=== PATIENT | female | born 1960 | race American Indian/Alaskan Native ===

== ENCOUNTER 2016-03-27 08:08 | Day surgery (SDC) | payer BC ==
[2016-03-27] MEDS ORDERED: WATER FOR IRRIG STERILE IR ONE (08:28)
--- NOTE | 2016-03-27 08:49 | Anesthesia Day of Surgery ---
Anesthesia Day of Surgery - Day of Surgery Patient Examined: Yes Patient H&P Reviewed: Yes Patient is NPO: Yes
--- NOTE | 2016-03-27 08:54 | Anesthesia Consultation ---
Anesthesia Consult and Med Hx Date of service: 03/27/16 - Airway Anesthetic Teeth Evaluation: Partials (upper) ROM Head & Neck: Adequate Mental/Hyoid Distance: Adequate Mallampati Class: Class II Intubation Access Assessment: Probably Good - Pulmonary Exam CTA: Yes - Cardiac Exam Cardiac Exam: RRR - Pre-Operative Health Status ASA Pre-Surgery Classification: ASA3 Proposed Anesthetic Plan: MAC - Pulmonary Hx Smoking: No Hx Sleep Apnea: Yes - Cardiovascular System Hx Hypertension: Yes - Central Nervous System Hx Seizures: No CVA: No - Endocrine Hx Renal Disease: No Hx Liver Disease: No Hx Non-Insulin Dependent Diabetes: No - Hematic Hx Sickle Cell Disease: No - Other Systems Hx Obesity: Yes - Additional Comments Anesthesia Medical History Comments: PONV
[2016-03-27] MEDS ORDERED: DIPRIVAN 10 MG/ML IV ONE ×3 (08:56)
[2016-03-27] MEDS ORDERED: NACL 0.9% 1000 ML 1,000 ML IV SCH (09:00)
--- NOTE | 2016-03-27 09:35 | Short Stay Summary ---
Short Stay Documentation Date of service: 03/27/16 Narrative H&P: 55 year old presents for colonoscopy for colon screening. No prior colonoscopy. - History Principal diagnosis: average risk colon screening H&P: obtained from office - Allergies and Medications Current Medications: Allergies Penicillins Allergy (Verified 12/28/12 10:27) Rash Home Medications Medication Instructions Recorded Confirmed Last Taken Type Hydrocodone Bit/Acetaminophen 1 each PO Q4-6H PRN #12 tablet 12/28/12 03/27/16 Unknown Rx [Lortab 5-500 Tablet] Ibuprofen [Motrin 800 MG tab] 800 mg PO TID #30 tablet 12/28/12 03/27/16 Unknown Rx Spironolactone [Aldactone] 50 mg PO QDAY 12/28/12 03/27/16 03/27/16 History amLODIPine [Norvasc] 10 mg PO DAILY 12/28/12 03/27/16 12/27/12 19:00 History Chromium 200 mg PO DAILY 03/27/16 03/27/16 03/20/16 History Losartan 50 mg PO DAILY 03/27/16 03/27/16 03/27/16 History Vitamin D 1 tab PO DAILY 03/27/16 03/27/16 03/20/16 History Active Medications Sodium Chloride (Nacl 0.9% 1000 Ml) 1,000 mls @ 50 mls/hr IV DIRECT LION Last Admin: 03/27/16 08:56 Dose: 50 mls/hr - Hospital course Hospital course: Uneventful colonoscopy. - Disposition Condition at discharge: Good Disposition: DISCHARGED TO HOME OR SELFCARE - Discharge Diagnoses (1) Colon polyps Status: Acute (2) Internal hemorrhoids Status: Acute Short Stay Discharge Plan Activity: other (no driving today) Diet: other (may resume usual diet) Additional Instructions: 1. No NSAIDs for 14 days (stop taking your iboprofen for the next 14 days). 2. Patient to call for path results in 10 days if she has not heard from us by then. 3. First-degree relatives (brothers, sisters, sons, daughters) should begin their colon screening at age 40 rather than age 50.
--- NOTE | 2016-03-27 10:23 | Operative Report ---
Operative Report Operative Report: Date of procedure: 03/27/2016 Preprocedure diagnosis: Average risk colon screening Post procedure diagnosis: Multiple polyps and internal hemorrhoids Procedure name(s): Colonoscopy with snare polypectomy 2 and forceps polypectomy 1 Surgeon: Porfirio Villalobos MD Anesthesia: Monitored anesthesia care EBL: None Procedure: The indications, techniques, potential complications and alternatives , had been discussed in full detail prior to the date of the exam, and once again on the day of the exam. Questions were encouraged and answered, and consent was thereby obtained. The patient was placed in the left lateral decubitus position, and was medicated by anesthesia services. See the anesthesia records for details. The anal sphincter was digitally dilated. The digital exam was unremarkable. The tip of a 8hands adult video colonoscope was inserted through the anal sphincter and into the rectal vault. It was then advanced proximally under continuous visualization of the lumen to the cecum without difficulty. Along the way, a 1 cm pedunculated polyp was excised from the sigmoid with snare and cautery (container #1) and a 1.5 cm pedunculated polyp was excised from the descending colon with a snare and cautery (container #2). There was no bleeding from either polypectomy site. Thereafter the instrument was advanced fully to the cecum. The prep was good and landmarks were easily identified. No pathology was seen in the cecum. The appendiceal orifice appeared normal. From the cecum, the instrument was slowly withdrawn with careful circumferential examination of the colonic mucosa. A 2-3 mm sessile polyp of the superior aspect of the ileocecal valve could not be excised using a snare, and was therefore excised using a hot forceps (container #3). No bleeding was precipitated. Withdrawal of the instrument was continued. The remainder the ascending colon appeared normal, as did the hepatic flexure, transverse colon and splenic flexure. The descending and sigmoid colon appeared normal except for the previous polypectomy sites. The rectum appeared normal from the forward view. Retroflexion in the rectum revealed internal hemorrhoids without stigmata of bleeding. No other pathology was found. The instrument was fully withdrawn. The procedure was very well tolerated. Postprocedure she was monitored in the recovery area of the GI lab to ensure stability prior to her release. See the outpatient record for details regarding instructions to patient, medications and plans for follow-up. Final diagnosis: 1. Pedunculated polyp, 1.5 cm, descending colon 2. Pedunculated polyp, 1.0 cm, sigmoid colon 3. Sessile polyp, 2-3 mm, superior surface of ileocecal valve 4. Internal hemorrhoids Porfirio Villalobos M.D. Dictated 03/27/2016 at 10:20 AM
[2016-03-27 10:32] VITALS: BP 128/55
== END 2016-03-27 08:09 | disposition home or self-care (01) ==
LOC: GIO 08:08
PROVIDERS: ATTEND Internal Medicine Gastroenterology
DX: Z12.11 Encounter for screening for malignant neoplasm of colon (principal); D12.5 Benign neoplasm of sigmoid colon; D12.4 Benign neoplasm of descending colon; K63.5 Polyp of colon; K64.8 Other hemorrhoids; I10 Essential (primary) hypertension; Z68.41 Body mass index [BMI] 40.0-44.9, adult; E66.9 Obesity, unspecified; Z72.89 Other problems related to lifestyle; Z98.890 Other specified postprocedural states; Z83.79 Family history of other diseases of the digestive system; Z80.0 Family history of malignant neoplasm of digestive organs
CPT/HCPCS: 45384; 45385; 88305; J2704; J7030

== ENCOUNTER 2016-10-27 12:59 | Emergency (ER) | payer BC ==
[2016-10-27 13:37] LABS: Basophils % (Auto) 0.6 % (0.0-1.8); Eosinophils % (Auto) 0.2 % (0.0-4.3); Hematocrit 41.9 % (30.3-42.9); Hemoglobin 14.3 gm/dl (10.1-14.3); Mean Corpuscular HGB Conc 34 % (30-34); Mean Corpuscular Hemoglobin 30 pg (28-32); Mean Corpuscular Volume 87 fl (79-97); Platelet Count 230 K/mm3 (140-440); Red Blood Count 4.81 M/mm3 (3.65-5.03); Red Cell Distribution Width 14.4 % (13.2-15.2); White Blood Count 14.7 K/mm3 (4.5-11.0)
--- NOTE | 2016-10-27 13:42 | Emergency Department Report ---
ED Chest Pain HPI - General Chief Complaint: Chest Pain Stated Complaint: CHEST PAIN Time Seen by Provider: 10/27/16 13:28 Source: patient Mode of arrival: Ambulatory Limitations: No Limitations - History of Present Illness Initial Comments: This is a 56 year-old female presents to the emergency department from home with complaint of a 1-2 day history of left-sided chest pain with some radiation up towards the left shoulder. The pain is reproducible when she touches her chest and with certain movements. She says that it was really painful when she was driving and had to use her left arm to turn the steering wheel. She denies any shortness of breath, nausea, vomiting, fever, back pain or diaphoresis. She has a past medical history of hypertension. No recent travel or sick contacts at home. She is not taking anything for symptoms prior to presentation. She denies any tobacco or illicit drug use or abuse. - Related Data Home Medications Medication Instructions Recorded Confirmed Last Taken Spironolactone [Aldactone] 50 mg PO QDAY 12/28/12 03/27/16 03/27/16 amLODIPine [Norvasc] 10 mg PO DAILY 12/28/12 03/27/16 12/27/12 19:00 Chromium 200 mg PO DAILY 03/27/16 03/27/16 03/20/16 Losartan 50 mg PO DAILY 03/27/16 03/27/16 03/27/16 Vitamin D 1 tab PO DAILY 03/27/16 03/27/16 03/20/16 Previous Rx's Medication Instructions Recorded Last Taken Type Hydrocodone Bit/Acetaminophen 1 each PO Q4-6H PRN #12 tablet 12/28/12 Unknown Rx [Lortab 5-500 Tablet] Allergies Allergy/AdvReac Type Severity Reaction Status Date / Time Penicillins Allergy Rash Verified 10/27/16 13:20 Heart Score - HEART Score History: Slightly suspicious EKG: Normal Age: 45-65 Risk factors: 1-2 risk factors Troponin: < normal limit HEART Score: 2 - Critical Actions Critical Actions: 0-3 pts:0.9-1.7%risk of adverse cardiac event.Candidate for discharge ED Review of Systems ROS: Stated complaint: CHEST PAIN Other details as noted in HPI Comment: All other systems reviewed and negative Constitutional: denies: chills, fever Eyes: denies: eye pain, eye discharge, vision change ENT: denies: ear pain, throat pain Respiratory: denies: cough, shortness of breath, wheezing Cardiovascular: chest pain. denies: palpitations Gastrointestinal: denies: abdominal pain, nausea, diarrhea Genitourinary: denies: urgency, dysuria, discharge Musculoskeletal: denies: back pain, joint swelling, arthralgia Skin: denies: rash, lesions Neurological: denies: headache, weakness, paresthesias ED Past Medical Hx - Past Medical History Previous Medical History?: Yes Hx Hypertension: Yes Hx Liver Disease: No Hx Renal Disease: No Hx Sickle Cell Disease: No Hx Seizures: No - Surgical History Past Surgical History?: Yes Additional Surgical History: x 2 - Social History Smoking Status: Never Smoker Substance Use Type: None - Medications Home Medications: Home Medications Medication Instructions Recorded Confirmed Last Taken Type Hydrocodone Bit/Acetaminophen 1 each PO Q4-6H PRN #12 tablet 12/28/12 03/27/16 Unknown Rx [Lortab 5-500 Tablet] Spironolactone [Aldactone] 50 mg PO QDAY 12/28/12 03/27/16 03/27/16 History amLODIPine [Norvasc] 10 mg PO DAILY 12/28/12 03/27/16 12/27/12 19:00 History Chromium 200 mg PO DAILY 03/27/16 03/27/16 03/20/16 History Losartan 50 mg PO DAILY 03/27/16 03/27/16 03/27/16 History Vitamin D 1 tab PO DAILY 03/27/16 03/27/16 03/20/16 History ED Physical Exam - General Limitations: No Limitations - Other Other exam information: GENERAL: The patient is well-developed well-nourished. HENT: Normocephalic. Atraumatic. Patient has moist mucous membranes. EYES: Extraocular motions are intact. Pupils equal, round and reactive to light. NECK: Supple. Trachea is midline. CHEST/LUNGS: Clear to auscultation. There is no respiratory distress noted. Left-sided chest pain is reproducible to palpation of the chest wall. HEART/CARDIOVASCULAR: Regular. There is no tachycardia. There is no gallop rub or murmur. ABDOMEN: Abdomen is soft, nontender. Patient has normal bowel sounds. There is no abdominal distention. SKIN: Skin is warm and dry. NEURO: The patient is awake, alert, and oriented. The patient is cooperative. The patient has no focal neurologic deficits. The patient has normal speech. MUSCULOSKELETAL: There is no tenderness or deformity. There is no limitation range of motion. There is no evidence of acute injury. ED Course Vital Signs 10/27/16 10/27/16 10/27/16 13:16 13:35 13:40 Temperature 98.8 F Pulse Rate 66 62 Respiratory 18 27 H 19 Rate Blood Pressure 140/90 140/79 O2 Sat by Pulse 98 98 Oximetry 10/27/16 10/27/16 10/27/16 14:10 14:20 14:30 Temperature Pulse Rate 65 76 57 L Respiratory 15 15 Rate Blood Pressure 144/85 144/85 155/85 O2 Sat by Pulse 98 98 99 Oximetry 10/27/16 10/27/16 10/27/16 14:40 14:50 15:00 Temperature Pulse Rate 60 63 70 Respiratory 15 12 15 Rate Blood Pressure 140/79 140/79 147/75 O2 Sat by Pulse 97 98 99 Oximetry 10/27/16 10/27/16 10/27/16 15:10 15:20 15:30 Temperature Pulse Rate 73 74 70 Respiratory 17 17 12 Rate Blood Pressure 147/75 147/75 167/71 O2 Sat by Pulse 96 96 97 Oximetry 10/27/16 10/27/16 10/27/16 15:40 15:50 16:00 Temperature Pulse Rate 68 72 68 Respiratory 16 17 14 Rate Blood Pressure 167/71 167/71 173/74 O2 Sat by Pulse 95 98 97 Oximetry 10/27/16 10/27/16 10/27/16 16:10 16:20 16:30 Temperature Pulse Rate 64 66 65 Respiratory 14 13 14 Rate Blood Pressure 173/74 125/55 125/55 O2 Sat by Pulse 97 95 96 Oximetry 10/27/16 16:40 Temperature Pulse Rate 64 Respiratory 13 Rate Blood Pressure 125/55 O2 Sat by Pulse 97 Oximetry BRITNI score - Britni Score Age > 65: (0) No Aspirin use within the Past 7 Days: (0) No 3 or more CAD Risk Factors: (0) No 2 or more Angina events in past 24 hrs: (0) No Known CAD with more than 50% Stenosis: (0) No Elevated Cardiac Markers: (0) No ST Deviation Greater than 0.5mm: (0) No BRITNI Score: 0 ED Medical Decision Making - Lab Data Result diagrams: 10/27/16 13:24 10/27/16 13:24 - EKG Data -: EKG Interpreted by Me EKG shows normal: sinus rhythm, axis, intervals, QRS complexes, ST-T waves Rate: normal - EKG Data When compared to previous EKG there are: previous EKG unavailable Interpretation: normal EKG - Radiology Data Radiology results: image reviewed interpreted by me: Chest x-ray does not show any acute process. There is no obvious pneumonia, pleural effusions or pneumothorax. - Medical Decision Making 56-year-old female presents to emergency department with a one to two-day history of some chest discomfort. The pain is reproducible to palpation of the chest wall as well with certain movements that she doesn't own. EKG is normal [address] elevation IA, ischemia or dysrhythmia. Labs are unremarkable including negative troponins 2. Chest x-ray does not show any acute process. She was given some aspirin to protect her heart. Patient has a low heart score criteria. She has a BRITNI score of 0. She is low on the well's score criteria and negative on the pulmonary embolus rule out criteria. Vital signs stable throughout her ED course. She was reevaluated multiple times for multiple hours and is stable. She appears safe for discharge home at this time but has been given a referral for cardiology for a possible outpatient stress test. She will return to the ER with any worsening of her symptoms or any acute distress. - Differential Diagnosis costochondritis, IA, pneumonia, muscle spasm Critical Care Time: No Critical care attestation.: If time is entered above; I have spent that time in minutes in the direct care of this critically ill patient, excluding procedure time. ED Disposition Clinical Impression: Costochondritis Chest pain Qualifiers: Chest pain type: unspecified Qualified Code(s): R07.9 - Chest pain, unspecified Disposition: DC-01 TO HOME OR SELFCARE Is pt being admited?: No Condition: Stable Instructions: Chest Pain (ED), Costochondritis (ED) Additional Instructions: Please follow-up with your primary care doctor the next few days. 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 Harris, to follow up regarding your chest pain and possibly get an outpatient stress test. Return to the emergency department with any worsening of her symptoms or any acute distress. Referrals: PRIMARY CAREMD [Primary Care Provider] - 3-5 Days VICTOR HUGO HARRIS MD [Staff Physician] - 3-5 Days Time of Disposition: 16:56
[2016-10-27 13:56] LABS: Anion Gap 18 mmol/L; BUN/Creatinine Ratio 17.14; Blood Urea Nitrogen 12 mg/dL (7-17); Calcium 9.9 mg/dL (8.4-10.2); Carbon Dioxide 26 mmol/L (22-30); Chloride 97.1 mmol/L (98-107); Glucose 83 mg/dL (65-100); Potassium 4.2 mmol/L (3.6-5.0); Sodium 137 mmol/L (137-145)
[2016-10-27] MEDS ORDERED: BABY ASPIRIN PO ONE (14:06)
--- NOTE | 2016-10-27 14:19 | XRay Report ---
CHEST 2 VIEWS INDICATION: Chest pain. COMPARISON: None similar. FINDINGS: PA and lateral chest radiographs demonstrate top normal heart size. Normal mediastinal and hilar contours. Slight horizontal peripheral left lower lung scarring or atelectasis. Clear remainder lungs without pleural effusions or CHF. Mild lower thoracic spine degenerative spurring. CONCLUSION: No significant acute chest process, as described. Thank you for the opportunity to participate in this patient's care.
[2016-10-27 16:47] VITALS: BP 125/55
== END 2016-10-27 17:01 | disposition home or self-care (01) ==
LOC: ED 12:59
DX: M94.0 Chondrocostal junction syndrome [Tietze] (principal); R07.9 Chest pain, unspecified; I10 Essential (primary) hypertension; Z88.0 Allergy status to penicillin
CPT/HCPCS: 36415; 71020; 80048; 84484; 85025; 93005; 93010

== ENCOUNTER 2017-02-20 07:58 | Outpatient (CLI) | payer BC ==
--- NOTE | 2017-02-20 09:08 | Mammography Report ---
BILATERAL DIGITAL SCREENING MAMMOGRAM with CAD: 02/20/17 07:58:00 CLINICAL: Routine screening. COMPARISON: 02/21/16 FINDINGS: The breasts are mostly fatty with a few bilateral residual fibroglandular densities.No mass, architectural distortion or suspicious calcifications. IMPRESSION: No mammographic evidence of malignancy. BI-RADS CATEGORY: 1 -- Negative RECOMMENDATION: Routine mammographic screening in one year. COMMENT: Patient follow-up letters are generated by our [employer] application.
== END 2017-02-20 07:59 | disposition home or self-care (01) ==
LOC: MAMMO 07:58
PROVIDERS: ATTEND Internal Medicine
DX: Z12.31 Encounter for screening mammogram for malignant neoplasm of breast (principal)
CPT/HCPCS: 77067; G0202

== ENCOUNTER 2017-10-09 11:14 | Outpatient (CLI) | payer BC ==
[2017-10-09 12:06] LABS: Alanine Aminotransferase 24 units/L (7-56); Albumin 4.2 g/dL (3.9-5); BUN/Creatinine Ratio 18; Blood Urea Nitrogen 11 mg/dL (7-17); Calcium 9.4 mg/dL (8.4-10.2); HDL Cholesterol 40 mg/dL (40-59); Hemolysis Index 5; LDL Cholesterol,Direct 124 mg/dL (50-130)
== END 2017-10-09 11:15 | disposition home or self-care (01) ==
LOC: LAB 11:14
PROVIDERS: ATTEND Internal Medicine
DX: I10 Essential (primary) hypertension (principal); R73.09 Other abnormal glucose; L30.9 Dermatitis, unspecified; E66.9 Obesity, unspecified; Z88.0 Allergy status to penicillin
CPT/HCPCS: 36415; 80053; 80061; 83036

== ENCOUNTER 2017-10-29 11:39 | Outpatient (CLI) | payer BC ==
[2017-10-29 12:32] LABS: Hematocrit 41.2 % (30.3-42.9); Hemoglobin 13.7 gm/dl (10.1-14.3); Mean Corpuscular HGB Conc 33 % (30-34); Mean Corpuscular Hemoglobin 29 pg (28-32); Mean Corpuscular Volume 87 fl (79-97); Platelet Count 217 K/mm3 (140-440); Red Blood Count 4.73 M/mm3 (3.65-5.03); Red Cell Distribution Width 15.2 % (13.2-15.2)
[2017-10-29 12:43] LABS: Alanine Aminotransferase 28 units/L (7-56); Albumin 4.2 g/dL (3.9-5); BUN/Creatinine Ratio 22; Blood Urea Nitrogen 13 mg/dL (7-17); Calcium 9.1 mg/dL (8.4-10.2); Chol/HDL Ratio 3.59 %; HDL Cholesterol 42 mg/dL (40-59); Hemolysis Index 5; LDL Cholesterol,Direct 112 mg/dL (50-130)
== END 2017-10-29 11:40 | disposition home or self-care (01) ==
LOC: CARD 11:39
PROVIDERS: ATTEND Internal Medicine
DX: I10 Essential (primary) hypertension (principal); E66.9 Obesity, unspecified; Z88.0 Allergy status to penicillin
CPT/HCPCS: 36415; 80053; 80061; 84436; 84443; 84480; 85027; 93005; 93010

== ENCOUNTER 2018-01-01 12:44 | Outpatient (CLI) | payer BC ==
[2018-01-01 14:35] LABS: Hematocrit 41.9 % (30.3-42.9); Hemoglobin 14.1 gm/dl (10.1-14.3); Mean Corpuscular HGB Conc 34 % (30-34); Mean Corpuscular Hemoglobin 29 pg (28-32); Mean Corpuscular Volume 87 fl (79-97); Platelet Count 220 K/mm3 (140-440); Red Blood Count 4.79 M/mm3 (3.65-5.03); Red Cell Distribution Width 14.5 % (13.2-15.2)
[2018-01-01 15:09] LABS: Alanine Aminotransferase 28 units/L (7-56); Albumin 4.4 g/dL (3.9-5); BUN/Creatinine Ratio 14; Blood Urea Nitrogen 10 mg/dL (7-17); Calcium 9.2 mg/dL (8.4-10.2); Hemolysis Index 2; LDL Cholesterol,Direct 122 mg/dL (50-130)
[2018-01-01 15:10] LABS: Chol/HDL Ratio 3.62 %; HDL Cholesterol 45 mg/dL (40-59)
== END 2018-01-01 12:45 | disposition home or self-care (01) ==
LOC: LAB 12:44
PROVIDERS: ATTEND Emergency Medicine
DX: L27.2 Dermatitis due to ingested food (principal); I10 Essential (primary) hypertension; E66.9 Obesity, unspecified
CPT/HCPCS: 36415; 80053; 80061; 84436; 84443; 85027

== ENCOUNTER 2018-08-21 11:09 | Outpatient (CLI) | payer BC ==
[2018-08-21 11:47] LABS: Hematocrit 40.6 % (30.3-42.9); Hemoglobin 13.8 gm/dl (10.1-14.3); Mean Corpuscular HGB Conc 34 % (30-34); Mean Corpuscular Volume 89 fl (79-97); Platelet Count 198 K/mm3 (140-440); Red Blood Count 4.58 M/mm3 (3.65-5.03); Red Cell Distribution Width 14.4 % (13.2-15.2)
[2018-08-21 12:11] LABS: Alanine Aminotransferase 35 units/L (7-56); Albumin 4.2 g/dL (3.9-5); BUN/Creatinine Ratio 13; Blood Urea Nitrogen 10 mg/dL (7-17); Hemolysis Index 1; LDL Cholesterol,Direct 104 mg/dL (50-130)
[2018-08-21 13:15] LABS: Chol/HDL Ratio 4.17 %; HDL Cholesterol 34 mg/dL (40-59)
== END 2018-08-21 11:10 | disposition home or self-care (01) ==
LOC: LAB 11:09
PROVIDERS: ATTEND Internal Medicine
DX: E11.9 Type 2 diabetes mellitus without complications (principal); I10 Essential (primary) hypertension; E78.5 Hyperlipidemia, unspecified; E66.9 Obesity, unspecified
CPT/HCPCS: 36415; 80053; 80061; 83036; 84443; 85027

== ENCOUNTER 2018-09-30 08:15 | Outpatient (CLI) | payer BC ==
--- NOTE | 2018-09-30 11:53 | Mammography Report ---
BILATERAL DIGITAL SCREENING MAMMOGRAM WITH CAD INDICATION: Routine screening mammography. TECHNIQUE: Digital bilateral 2D mammography was obtained in the craniocaudal and mediolateral obliq ue projections. This examination was interpreted with the benefit of Computer-Aided Detection analysi s. COMPARISON: 02/20/2017 FINDINGS: Breast Density: There are scattered areas of fibroglandular density. No mass, architectural distortion or suspicious calcifications. IMPRESSION:No mammographic evidence of malignancy. BI-RADS Category 1: Negative. No mammographic evidence of malignancy. Recommend routine screening m ammography in one year. A "normal" or negative report should not discourage follow up or biopsy of a clinically significant f inding. A written summary of these findings will be mailed to the patient. The patient will be entered into a mammography reporting system which will generate a reminder letter for the patient's next appointmen t at the appropriate interval. The [employer] recommends yearly mammograms starting at age 40 and continuing as l red as a woman is in good health. Breast MRI is recommended for women with an approximate 20-25% or greater lifetime risk of breast cancer, including women with a strong family history of breast or ova angela cancer or who have been treated for Hodgkin's disease. Signer Name: Shon Casey MD Signed: 09/30/2018 11:48 AM Workstation Name: [id number]
== END 2018-09-30 08:16 | disposition home or self-care (01) ==
LOC: MAMMO 08:15
PROVIDERS: ATTEND Internal Medicine
DX: Z12.31 Encounter for screening mammogram for malignant neoplasm of breast (principal); I10 Essential (primary) hypertension; E66.9 Obesity, unspecified
CPT/HCPCS: 77067

== ENCOUNTER 2018-12-16 08:51 | Outpatient (CLI) | payer BC ==
--- NOTE | 2018-12-16 10:32 | Ultrasound Report ---
ULTRASOUND PELVIC COMPLETE ULTRASOUND TRANSVAGINAL HISTORY: Other specified menopausal and perimenopausal disorders, history of fibroid disease. TECHNIQUE: Transabdominal and transvaginal ultrasound imaging. COMPARISON: None. FINDINGS: The uterus is anteverted. The uterus measures 7.1 x 1.7 x 3.9 cm. A 1.2 cm intramural fibroid is iden tified in the anterior wall. A 0.9 cm subserosal fibroid is identified in the posterior wall. No larg e submucosal fibroid is identified. The cervix is unremarkable. The endometrium is mildly atrophic measuring 2.4 mm. The right ovary is unremarkable measuring 2.3 x 1.5 x 2.8 cm. The left ovary is unremarkable measurin g 2.0 x 1.5 x 1.5 cm. No pelvic fluid collection is appreciated. IMPRESSION: Mild uterine fibroid disease as described. Mild endometrial atrophy measuring 2.2 mm. Unremarkable ovaries. Signer Name: Raymundo Koch Jr, MD Signed: 12/16/2018 10:27 AM Workstation Name: [id number]
== END 2018-12-16 08:52 | disposition home or self-care (01) ==
LOC: US 08:51
PROVIDERS: ATTEND Advanced Practice Midwife
DX: N95.8 Other specified menopausal and perimenopausal disorders (principal); N85.8 Other specified noninflammatory disorders of uterus
CPT/HCPCS: 76830; 76856

== ENCOUNTER 2019-03-31 12:23 | Outpatient (CLI) | payer BC ==
[2019-03-31 12:43] LABS: Basophils % (Auto) 0.6 % (0.0-1.8); Eosinophils # (Auto) 0.2 K/mm3 (0.0-0.4); Eosinophils % (Auto) 1.8 % (0.0-4.3); Hematocrit 39.4 % (30.3-42.9); Hemoglobin 13.6 gm/dl (10.1-14.3); Lymphocytes # (Auto) 2.5 K/mm3 (1.2-5.4); Lymphocytes % (Auto) 29.5 % (13.4-35.0); Mean Corpuscular HGB Conc 35 % (30-34); Mean Corpuscular Volume 88 fl (79-97); Monocytes # (Auto) 0.8 K/mm3 (0.0-0.8); Monocytes % (Auto) 10.1 % (0.0-7.3); Platelet Count 232 K/mm3 (140-440); Red Blood Count 4.47 M/mm3 (3.65-5.03); Red Cell Distribution Width 13.9 % (13.2-15.2)
[2019-03-31 13:18] LABS: Alanine Aminotransferase 25 units/L (7-56); Albumin 4.1 g/dL (3.9-5); BUN/Creatinine Ratio 11; Blood Urea Nitrogen 9 mg/dL (7-17); Chol/HDL Ratio 3.82 %; HDL Cholesterol 41 mg/dL (40-59); Hemolysis Index 3; LDL Cholesterol,Direct 113 mg/dL (50-130)
[2019-03-31 13:30] LABS: Free T4 (Free Thyroxine) 0.98 ng/dL (0.76-1.46)
== END 2019-03-31 12:24 | disposition home or self-care (01) ==
LOC: LAB 12:23
PROVIDERS: ATTEND Family Medicine
DX: Z00.00 Encounter for general adult medical examination without abnormal findings (principal); I10 Essential (primary) hypertension; Z68.42 Body mass index [BMI] 45.0-49.9, adult
CPT/HCPCS: 36415; 80053; 80061; 83036; 84439; 84443; 85025

== ENCOUNTER 2020-01-01 15:10 | Outpatient (CLI) | payer BC ==
[2020-01-01 15:36] LABS: Basophils % (Auto) 0.5 % (0.0-1.8); Eosinophils # (Auto) 0.2 K/mm3 (0.0-0.4); Eosinophils % (Auto) 1.8 % (0.0-4.3); Hematocrit 40.1 % (30.3-42.9); Hemoglobin 13.7 gm/dl (10.1-14.3); Lymphocytes # (Auto) 2.4 K/mm3 (1.2-5.4); Lymphocytes % (Auto) 29.6 % (13.4-35.0); Mean Corpuscular HGB Conc 34 % (30-34); Mean Corpuscular Volume 90 fl (79-97); Monocytes # (Auto) 0.8 K/mm3 (0.0-0.8); Platelet Count 227 K/mm3 (140-440); Red Blood Count 4.46 M/mm3 (3.65-5.03)
[2020-01-01 16:03] LABS: Alanine Aminotransferase 33 units/L (7-56); Albumin 4.2 g/dL (3.9-5); Blood Urea Nitrogen 13 mg/dL (7-17); Calcium 9.7 mg/dL (8.4-10.2); Chol/HDL Ratio 3.88 %; HDL Cholesterol 42 mg/dL (40-59); Hemolysis Index 2; LDL Cholesterol,Direct 121 mg/dL (50-130)
[2020-01-01 16:08] LABS: BUN/Creatinine Ratio 19
== END 2020-01-01 15:11 | disposition home or self-care (01) ==
LOC: LAB 15:10
PROVIDERS: ATTEND Internal Medicine
DX: Z20.828 Contact with and (suspected) exposure to other viral communicable diseases (principal); I10 Essential (primary) hypertension; E88.81 Metabolic syndrome and other insulin resistance
CPT/HCPCS: 36415; 80053; 80061; 83036; 85025

== ENCOUNTER 2020-02-24 08:55 | Day surgery (SDC) | payer BC ==
[~2020-02-24 08:55] MED LIST: SODIUM CHLORIDE 0.9% 1000 ML 1,000 ML IV SCH
--- NOTE | 2020-02-24 11:00 | Anesthesia Day of Surgery ---
Anesthesia Day of Surgery - Day of Surgery Patient Examined: Yes Patient H&P Reviewed: Yes Patient is NPO: Yes Beta Blockers: No Cardiac Clearance: No Pulmonary Clearance: No
--- NOTE | 2020-02-24 11:00 | Anesthesia Consultation ---
Anesthesia Consult and Med Hx Date of service: 02/24/20 - Airway Anesthetic Teeth Evaluation: Partials ROM Head & Neck: Adequate Mental/Hyoid Distance: Adequate Mallampati Class: Class II Intubation Access Assessment: Probably Good - Pulmonary Exam CTA: Yes - Pre-Operative Health Status ASA Pre-Surgery Classification: ASA3 Proposed Anesthetic Plan: MAC - Pulmonary Hx Smoking: No Hx Asthma: No Hx Respiratory Symptoms: No Hx Sleep Apnea: Yes - Cardiovascular System Hx Hypertension: Yes Hx Heart Attack/AMI: No Hx Angina: No - Central Nervous System Hx Neuromuscular Disorder: No Hx Seizures: No CVA: No Hx Psychiatric Problems: No - Gastrointestinal Hx Ulcer: No Hx Gastroesophageal Reflux Disease: No - Endocrine Hx Renal Disease: No Hx Liver Disease: No Hx Non-Insulin Dependent Diabetes: No Hx Thyroid Disease: No - Hematic Hx Sickle Cell Disease: No - Other Systems Hx Alcohol Use: No Hx Substance Use: No Hx Obesity: Yes (BMI- 46.5kg) - Additional Comments Anesthesia Medical History Comments: Patient denied previous anesthesia compli cation.
[2020-02-24] MEDS ORDERED: propofoL 200 MG/20 ML VIAL IV ONE (11:46)
[2020-02-24] MEDS ORDERED: LIDOCAINE MPF (2%) 20 MG/1 ML VIAL 5 ML ONE (11:46)
--- NOTE | 2020-02-24 12:29 | Short Stay Summary ---
Short Stay Documentation Date of service: 02/24/20 - History H&P: obtained from office - Allergies and Medications Current Medications: Allergies Penicillins Allergy (Verified 10/27/16 13:20) Rash Home Medications Medication Instructions Recorded Confirmed Last Taken Type Hydrocodone Bit/Acetaminophen 1 each PO Q4-6H PRN #12 tablet 12/28/12 03/27/16 Unknown Rx [Lortab 5-500 Tablet] Spironolactone [Aldactone] 50 mg PO QDAY 12/28/12 03/27/16 03/27/16 History amLODIPine 10 mg PO DAILY 12/28/12 03/27/16 12/27/12 19:00 History Chromium 200 mg PO DAILY 03/27/16 03/27/16 03/20/16 History Losartan 50 mg PO DAILY 03/27/16 03/27/16 03/27/16 History Vitamin D 1 tab PO DAILY 03/27/16 03/27/16 03/20/16 History Cyclobenzaprine [Flexeril] 10 mg PO TID PRN #30 tablet 01/25/18 Unknown Rx Cyclobenzaprine [Flexeril] 10 mg PO TID PRN #30 tablet 11/28/[address] (Nf) 50 mg PO TID PRN #30 tab 11/28/18 Unknown Rx Menthol/Camphor [[place] 1 applicatio TP QID PRN #1 tube 11/28/18 Unknown Rx Ointment] Active Medications Sodium Chloride (Nacl 0.9% 1000 Ml) 1,000 mls @ 50 mls/hr IV DIRECT LION - Brief post op/procedure progress note Date of procedure: 02/24/20 Pre-op diagnosis: Personal hx of colon polyps Post-op diagnosis: other (Transverse colon polyp) Procedure: Colonoscopy with hot biopsy polypectomy Anesthesia: MAC Findings: 1. 5 mm proximal transverse colon polyp - hot biopsied. 2. Otherwise normal colonoscopy Surgeon: NERIS IVORY Estimated blood loss: none Pathology: list (TC polyp) Specimen disposition: to lab Condition: stable - Disposition Condition at discharge: Good Disposition: - TO HOME OR SELFCARE Short Stay Discharge Plan Activity: advance as tolerated Diet: regular Follow up with: LUISA AHUJA MD [Primary Care Provider] - 7 Days
--- NOTE | 2020-02-24 12:39 | Operative Report ---
COLONOSCOPY REPORT PROCEDURE: Colonoscopy. PREOPERATIVE DIAGNOSIS: Personal history of colon polyps. POSTOPERATIVE DIAGNOSIS: Transverse colon polyp. SEDATION: MAC by Anesthesia. HISTORY: The patient is a 59-year-old woman with a personal history of colon polyps in the past. DESCRIPTION OF PROCEDURE: Indications, risks, and benefits were explained and consent was obtained. The patient was placed in left lateral decubitus position and sedated. Video colonoscope was passed through the rectum after digital examination and passed with minimal difficulty to the cecum, which was identified by the ileocecal valve and the appendiceal orifice. Scope was then gradually withdrawn with close inspection of the mucosa. Prep was good. FINDINGS: 1. A 5 mm transverse colon polyp approximately, removed with hot biopsy forceps. 2. Remainder of visualized colonic mucosa is normal appearing with no evidence of mass lesions, vascular lesions or inflammation. The patient tolerated the procedure well without immediate complication. IMPRESSION: 1. Transverse colon polyp - removed with hot biopsy forceps. 2. Otherwise, normal colonoscopy. PLAN: 1. Follow up biopsies. 2. Repeat colonoscopy in 5 years. JOB# [id number] HRC/NTS
[2020-02-24 13:37] VITALS: BP 116/57
--- NOTE | 2020-02-24 18:39 | Post Anesthesia Evaluation ---
- Post Anesthesia Evaluation Patient Participated: Yes Airway Patent: Yes Stable Respiratory Function: Yes Nausea/Vomiting: No Temp > 96.8F: Yes Pain Manageable: Yes Adequeate Hydration: Yes Anesthesia Complications: No Block Receding Appropriately: Not Applicable Patient on Ventilator: No
== END 2020-02-24 13:48 | disposition home or self-care (01) ==
LOC: GIO 08:55
PROVIDERS: ATTEND Internal Medicine Gastroenterology
DX: Z12.11 Encounter for screening for malignant neoplasm of colon (principal); K63.5 Polyp of colon; I10 Essential (primary) hypertension; K64.8 Other hemorrhoids; G47.30 Sleep apnea, unspecified; E66.9 Obesity, unspecified; Z86.010 Personal history of colon polyps; Z80.0 Family history of malignant neoplasm of digestive organs; Z98.891 History of uterine scar from previous surgery; Z98.890 Other specified postprocedural states; Z88.0 Allergy status to penicillin; Z79.899 Other long term (current) drug therapy; Z68.42 Body mass index [BMI] 45.0-49.9, adult
CPT/HCPCS: 45384; 88305; J2704; J7030

== ENCOUNTER 2020-02-25 10:51 | Outpatient (CLI) | payer BC ==
--- NOTE | 2020-02-25 12:33 | Mammography Report ---
BILATERAL DIGITAL SCREENING MAMMOGRAM WITH CAD HISTORY: SCREENING MAMMOGRAM TECHNIQUE: Routine digital mammographic imaging performed. This examination was interpreted with jb kirkland benefit of Computer-aided Detection analysis. COMPARISON: 09/30/2018, 02/10/2017. FINDINGS: Breast Density: scattered fibroglandular appearance of the breast tissue. Digital CC and MLO views demonstrate no mammographic evidence of malignancy. IMPRESSION: No mammographic evidence of malignancy. If the clinical examination remains stable, recommend bilate ral mammogram in approximately one year. BIRADS 1: Negative. FURTHER INFORMATION: According to the [employer], yearly mammograms are recommend ed starting at age 40 and continuing as long as a woman is in good health. Clinical Breast Exams shou ld be part of a periodic health exam-about every 3 years for women in their 20s and 30s and every yea r for women 40 and over. Breast self exam is an option for women starting in their 20s. Any breast ch natalie noted on a breast self exam should be reported promptly to the patient's healthcare provider. Br east MRI is recommended for women with an approximately 20-25% or greater lifetime risk of breast can cer, including women with a strong family history of breast or ovarian cancer and women who have been treated for Hodgkin's disease. A negative Mammography report should not discourage follow up or biopsy of a clinically significant f inding and/or abnormality. Dense breast tissue may obscure small neoplasms. The patient will be entered into a reminder system with a target due date for the next screening mamm ogram. Signer Name: Bong Wylie MD Signed: 02/25/2020 12:29 PM Workstation Name: [id number]
== END 2020-02-25 10:52 | disposition home or self-care (01) ==
LOC: MAMMO 10:51
PROVIDERS: ATTEND Internal Medicine
DX: Z12.31 Encounter for screening mammogram for malignant neoplasm of breast (principal); N64.89 Other specified disorders of breast
CPT/HCPCS: 77067

== ENCOUNTER 2020-04-07 15:32 | Outpatient (CLI) | payer BC ==
[2020-04-07 16:41] LABS: Hepatitis C Virus Antibody Non-Reactive (NonReactive)
== END 2020-04-07 15:33 | disposition home or self-care (01) ==
LOC: LAB 15:32
PROVIDERS: ATTEND Obstetrics & Gynecology
DX: Z11.3 Encounter for screening for infections with a predominantly sexual mode of transmission (principal)
CPT/HCPCS: 36415; 86592; 86689; 86695; 86706; 86803

== ENCOUNTER 2020-05-10 13:35 | Outpatient (CLI) | payer BC ==
[2020-05-10 14:37] LABS: Blood Urea Nitrogen 13 mg/dL (7-17); Calcium 9.1 mg/dL (8.4-10.2); Hemolysis Index 4
[2020-05-10 15:00] LABS: BUN/Creatinine Ratio 19
--- NOTE | 2020-05-10 15:16 | XRay Report ---
CHEST 2 VIEWS INDICATION / CLINICAL INFORMATION: UPPER RESPIRATORY TRACT INFECTION,UNSPECIFIED TYPE. COMPARISON: 01/25/2018 FINDINGS: SUPPORT DEVICES: None. HEART / MEDIASTINUM: No significant abnormality. LUNGS / PLEURA: No significant pulmonary or pleural abnormality. No pneumothorax. ADDITIONAL FINDINGS: No significant additional findings. IMPRESSION: No significant abnormality or interval change from 01/25/2018 Signer Name: Wilfredo Huynh MD FACEpifanio Signed: 05/10/2020 3:11 PM Workstation Name: [id number]
== END 2020-05-10 13:36 | disposition home or self-care (01) ==
LOC: XRAY 13:35
PROVIDERS: ATTEND Obstetrics & Gynecology
DX: J06.9 Acute upper respiratory infection, unspecified (principal)
CPT/HCPCS: 36415; 71046; 80048; 83036

== ENCOUNTER 2020-12-24 11:55 | Outpatient (CLI) | payer BC ==
[2020-12-24 12:50] LABS: Basophils % (Auto) 0.4 % (0.0-1.8); Eosinophils # (Auto) 0.3 K/mm3 (0.0-0.4); Eosinophils % (Auto) 3.5 % (0.0-4.3); Hematocrit 38.8 % (30.3-42.9); Hemoglobin 13.4 gm/dl (10.1-14.3); Lymphocytes # (Auto) 2.8 K/mm3 (1.2-5.4); Lymphocytes % (Auto) 34.9 % (13.4-35.0); Mean Corpuscular HGB Conc 35 % (30-34); Mean Corpuscular Volume 90 fl (79-97); Monocytes # (Auto) 0.7 K/mm3 (0.0-0.8); Monocytes % (Auto) 8.9 % (0.0-7.3); Platelet Count 216 K/mm3 (140-440); Red Cell Distribution Width 13.7 % (13.2-15.2)
[2020-12-24 13:06] LABS: Alanine Aminotransferase 25 units/L (7-56); Albumin 4.2 g/dL (3.9-5); Blood Urea Nitrogen 11 mg/dL (7-17); Calcium 9.5 mg/dL (8.4-10.2); Chol/HDL Ratio 4.06 %; HDL Cholesterol 43 mg/dL (40-59); Hemolysis Index 6; LDL Cholesterol,Direct 129 mg/dL (50-130)
[2020-12-24 13:11] LABS: BUN/Creatinine Ratio 16
== END 2020-12-24 11:56 | disposition home or self-care (01) ==
LOC: LAB 11:55
PROVIDERS: ATTEND Internal Medicine
DX: Z00.00 Encounter for general adult medical examination without abnormal findings (principal); E88.81 Metabolic syndrome and other insulin resistance; E11.9 Type 2 diabetes mellitus without complications
CPT/HCPCS: 36415; 80053; 80061; 83036; 84436; 84443; 84479; 85025

== ENCOUNTER 2021-02-10 10:45 | Outpatient (CLI) | payer BC ==
[2021-02-10 11:14] LABS: Basophils % (Auto) 0.4 % (0.0-1.8); Eosinophils # (Auto) 0.1 K/mm3 (0.0-0.4); Eosinophils % (Auto) 0.9 % (0.0-4.3); Hematocrit 42.5 % (30.3-42.9); Hemoglobin 14.1 gm/dl (10.1-14.3); Lymphocytes # (Auto) 1.8 K/mm3 (1.2-5.4); Lymphocytes % (Auto) 26.6 % (13.4-35.0); Mean Corpuscular HGB Conc 33 % (30-34); Mean Corpuscular Volume 91 fl (79-97); Monocytes # (Auto) 0.9 K/mm3 (0.0-0.8); Monocytes % (Auto) 12.6 % (0.0-7.3); Platelet Count 225 K/mm3 (140-440); Red Blood Count 4.66 M/mm3 (3.65-5.03)
[2021-02-10 11:35] LABS: Alanine Aminotransferase 26 units/L (7-56); Albumin 4.1 g/dL (3.9-5); Blood Urea Nitrogen 11 mg/dL (7-17); Calcium 9.1 mg/dL (8.4-10.2); Chol/HDL Ratio 3.84 %; HDL Cholesterol 45 mg/dL (40-59); Hemolysis Index 9; LDL Cholesterol,Direct 113 mg/dL (50-130)
[2021-02-10 11:41] LABS: BUN/Creatinine Ratio 18
== END 2021-02-10 10:46 | disposition home or self-care (01) ==
LOC: LAB 10:45
PROVIDERS: ATTEND Internal Medicine
DX: Z00.00 Encounter for general adult medical examination without abnormal findings (principal)
CPT/HCPCS: 36415; 80053; 80061; 83036; 84436; 84443; 85025

== ENCOUNTER 2021-04-12 16:18 | Outpatient (CLI) | payer BC ==
--- NOTE | 2021-04-13 13:16 | Mammography Report ---
DIGITAL SCREENING MAMMOGRAM WITH CAD, 04/12/2021 CLINICAL INFORMATION / INDICATION: Routine screening mammography. SCREENING MAMMO Z12.31 TECHNIQUE: Digital bilateral 2D mammography was obtained in the craniocaudal and mediolateral obliqu e projections. This examination was interpreted with the benefit of Computer-Aided Detection analysis . COMPARISON: 02/08/2015 through 02/25/2020. FINDINGS: Breast Density: There are scattered areas of fibroglandular density. No dominant mass, suspicious calcifications, or architectural distortion in either breast. IMPRESSION: No mammographic evidence of malignancy. Follow up recommendation: Routine yearly BI-RADS Category 1: NEGATIVE A "normal" or negative report should not discourage follow up or biopsy of a clinically significant f inding. A written summary of these findings will be mailed to the patient. The patient will be entered into a mammography reporting system which will generate a reminder letter for the patient's next appointmen t at the appropriate interval. The [employer] recommends yearly mammograms starting at age 40 and continuing as l red as a woman is in good health. Breast MRI is recommended for women with an approximate 20-25% or greater lifetime risk of breast cancer, including women with a strong family history of breast or ova angela cancer or who have been treated for Hodgkin's disease. Signer Name: Fabrice Osman MD Signed: 04/13/2021 1:11 PM Workstation Name: [id number]
== END 2021-04-12 16:19 | disposition home or self-care (01) ==
LOC: SPVWC 16:18
PROVIDERS: ATTEND Internal Medicine
DX: Z12.31 Encounter for screening mammogram for malignant neoplasm of breast (principal)
CPT/HCPCS: 77067

== ENCOUNTER 2021-05-09 09:54 | Outpatient (CLI) | payer BC ==
--- NOTE | 2021-05-09 15:26 | Vascular Lab Report ---
DUPLEX DOPPLER ULTRASOUND CAROTID, BILATERAL INDICATION / CLINICAL INFORMATION: HTN. COMPARISON: None available. FINDINGS: RIGHT CAROTID: No significant atherosclerotic plaque. - PLAQUE ESTIMATE (%): < 50% - CCA velocity: 68 cm/sec. - ICA peak systolic velocity: 83 cm/sec. - ICA/CCA PSV Ratio: Less than 2. Right Vertebral Artery: Antegrade flow. LEFT CAROTID: No significant atherosclerotic plaque. - PLAQUE ESTIMATE (%): < 50% - CCA velocity: 81 cm/sec. - ICA peak systolic velocity: 79 cm/sec. End diastolic velocity is slightly elevated to 42 cm/s is no sandhya in the left distal internal carotid artery. - ICA/CCA PSV Ratio: Less than 2. Left Vertebral Artery: Antegrade flow. IMPRESSION: 1. Right Internal Carotid Artery: Normal. No stenosis. 2. Left Internal Carotid Artery: A single parameter is elevated slightly in the distal left internal carotid artery as above. Findings might suggest moderate stenosis in the 50-75% range, likely at the lower end of that range. CTA or MRA may be useful. Velocity criteria are extrapolated from diameter data as defined by the Society of Radiologists in Ul trasound Consensus Conference, Radiology 2003; 229;340-346. NO STENOSIS (NORMAL) - Plaque = none; ICA PSV < 125 cm/sec; ICA/CCA PSV Ratio < 2.0 <50% STENOSIS - Plaque < 50%; ICA PSV < 125 cm/sec; ICA/CCA PSV Ratio < 2.0 50-69% STENOSIS - Plaque > 50%; ICA PSV = 125-230 cm/sec; ICA/CCA PSV Ratio = 2.0-4.0 >70% BUT <100% STENOSIS - Plaque > 50%; ICA PSV > 230 cm/sec; ICA/CCA PSV Ratio > 4.0 NEAR OCCLUSION - Plaque = visible lumen; ICA PSV = high/low/none; ICA/CCA PSV Ratio = variable TOTAL OCCLUSION - Plaque = no lumen; ICA PSV = none; ICA/CCA PSV Ratio = N/A Scribed by: Daniela Soriano RDMS, RVT, RMSKS Scribed: 05/09/2021 12:55 PM I have reviewed the images, agree with this report, and edited this report as needed. Signer Name: Srinivasa Beckman MD Signed: 05/09/2021 3:13 PM Workstation Name: [id number]
== END 2021-05-09 09:55 | disposition home or self-care (01) ==
LOC: ECHO 09:54
PROVIDERS: ATTEND Nurse Practitioner Family
DX: I34.0 Nonrheumatic mitral (valve) insufficiency (principal); I27.20 Pulmonary hypertension, unspecified; I10 Essential (primary) hypertension
CPT/HCPCS: 93880; C8929; 93306

== ENCOUNTER 2021-07-01 12:08 | Outpatient (CLI) | payer BC ==
[2021-07-01 12:51] LABS: Basophils % (Auto) 0.5 % (0.0-1.8); Eosinophils # (Auto) 0.1 K/mm3 (0.0-0.4); Eosinophils % (Auto) 1.9 % (0.0-4.3); Hematocrit 41.4 % (30.3-42.9); Hemoglobin 13.9 gm/dl (10.1-14.3); Lymphocytes # (Auto) 2.7 K/mm3 (1.2-5.4); Lymphocytes % (Auto) 34.4 % (13.4-35.0); Mean Corpuscular HGB Conc 34 % (30-34); Mean Corpuscular Volume 90 fl (79-97); Monocytes # (Auto) 0.8 K/mm3 (0.0-0.8); Monocytes % (Auto) 10.4 % (0.0-7.3); Platelet Count 231 K/mm3 (140-440); Red Blood Count 4.59 M/mm3 (3.65-5.03); Red Cell Distribution Width 13.8 % (13.2-15.2)
[2021-07-01 13:08] LABS: Alanine Aminotransferase 26 units/L (7-56); Albumin 4.4 g/dL (3.9-5); BUN/Creatinine Ratio 15; Blood Urea Nitrogen 9 mg/dL (7-17); Calcium 9.9 mg/dL (8.4-10.2); Chol/HDL Ratio 4.35 %; HDL Cholesterol 42 mg/dL (40-59); Hemolysis Index 4; LDL Cholesterol,Direct 132 mg/dL (50-130)
[2021-07-05 13:53] LABS: Vitamin D, 25-OH, D2 <4 ng/mL
== END 2021-07-01 12:09 | disposition home or self-care (01) ==
LOC: LAB 12:08
PROVIDERS: ATTEND Internal Medicine
DX: Z00.00 Encounter for general adult medical examination without abnormal findings (principal); M54.40 Lumbago with sciatica, unspecified side
CPT/HCPCS: 36415; 80053; 80061; 82306; 83036; 84439; 84443; 84480; 85025

== ENCOUNTER 2021-07-10 12:27 | Emergency (ER) | payer BC ==
--- NOTE | 2021-07-10 13:12 | Emergency Department Report ---
Blank Doc - Documentation Documentation: 60-year-old female that presents with chest pain and shortness of breath. 1- This is a initial triage assessment/medical screening only. Full assessment and work-up will be completed once the patient is in proper hospital gown, ED bed and in a private room setting. This initial assessment/diagnostic orders/clinical plan/ treatment(s) is/are subject to change based on pt's health status, clinical progression and re-assessment by fellow clinical providers in the ED. Further treatment and workup at subsequent clinical providers discretion. Patient/guardians urged not to elope from ED as their condition may be serious if not clinically assessed and managed. 2-cardiac workup The patient was evaluated in the emergency department for symptoms described in the history of present illness. He/she was evaluated in the context of the global COVID-19 pandemic, which necessitated consideration that the patient might be at risk for infection with the virus that causes COVID-19. Institutional protocols and algorithms that pertain to the evaluation of patients at risk for COVID-19 are in a state of rapid change based on information released by regulatory bodies including the CDC and federal and state organizations. These policies and algorithms were followed during the patient's care in the emergency department. Please note that these policies, procedures and recommendations changed on a rapid basis.
[2021-07-10 13:38] LABS: Basophils # (Auto) 0.1 K/mm3 (0.0-0.1); Basophils % (Auto) 0.7 % (0.0-1.8); Eosinophils # (Auto) 0.1 K/mm3 (0.0-0.4); Eosinophils % (Auto) 1.1 % (0.0-4.3); Hematocrit 41.2 % (30.3-42.9); Hemoglobin 13.9 gm/dl (10.1-14.3); Lymphocytes # (Auto) 2.4 K/mm3 (1.2-5.4); Lymphocytes % (Auto) 21.9 % (13.4-35.0); Mean Corpuscular HGB Conc 34 % (30-34); Mean Corpuscular Volume 90 fl (79-97); Monocytes # (Auto) 1.1 K/mm3 (0.0-0.8); Monocytes % (Auto) 9.8 % (0.0-7.3); Platelet Count 253 K/mm3 (140-440); Red Blood Count 4.58 M/mm3 (3.65-5.03); Red Cell Distribution Width 13.6 % (13.2-15.2)
[2021-07-10 13:49] LABS: INR 0.98 (0.87-1.13)
[2021-07-10 13:50] LABS: Partial Thromboplastin Time 26.1 Sec. (24.2-36.6)
[2021-07-10 14:00] LABS: Alanine Aminotransferase 21 units/L (7-56); Albumin 4.8 g/dL (3.9-5); Blood Urea Nitrogen 13 mg/dL (7-17); Calcium 9.8 mg/dL (8.4-10.2); Hemolysis Index 32
[2021-07-10 14:06] LABS: BUN/Creatinine Ratio 19
--- NOTE | 2021-07-10 14:26 | XRay Report ---
CHEST 2 VIEWS INDICATION / CLINICAL INFORMATION: Chest Pain. COMPARISON: 05/10/2020 FINDINGS: SUPPORT DEVICES: None. HEART / MEDIASTINUM: No significant abnormality. LUNGS / PLEURA: No significant pulmonary or pleural abnormality. No pneumothorax. ADDITIONAL FINDINGS: No significant additional findings. IMPRESSION: 1. No acute findings. Signer Name: Alex Horner MD Signed: 07/10/2021 2:21 PM Workstation Name: [id number]
[2021-07-10] MEDS ORDERED: ONDANSETRON 4 MG/2 ML INJ IV ONE (17:42)
[2021-07-10] MEDS ORDERED: MORPHINE 4 MG/1 ML INJ IV ONE (17:42)
--- NOTE | 2021-07-10 18:21 | Cat Scan Report ---
CTA CHEST WITH CONTRAST INDICATION / CLINICAL INFORMATION: chest pain. TECHNIQUE: Axial CT images were obtained through the chest after injection of 97 cc of Omnipaque 350 IV contrast. 3 plane MIP and/or 3D reconstructions were produced. All CT scans at this location are p erformed using CT dose reduction for ALARA by means of automated exposure control. COMPARISON: None available. FINDINGS: PULMONARY ARTERIES: No pulmonary emboli. THORACIC AORTA: No significant abnormality. HEART: No significant abnormality. CORONARY ARTERY CALCIFICATION: None. MEDIASTINUM / ANNE-MARIE: No significant abnormality. PLEURA: No pleural effusion. No pneumothorax. LUNGS: No acute air space or interstitial disease. ADDITIONAL FINDINGS: None. UPPER ABDOMEN: Hepatic steatosis. SKELETAL STRUCTURES: No significant osseous abnormality. IMPRESSION: 1. No CT evidence for pulmonary embolism. No other acute abnormality. 2. Hepatic steatosis. Signer Name: Alex Horner MD Signed: 07/10/2021 6:17 PM Workstation Name: [id number]
--- NOTE | 2021-07-10 18:34 | Emergency Department Report ---
ED Chest Pain HPI - General Chief Complaint: Chest Pain Stated Complaint: RT SIDE CHEST PAIN Time Seen by Provider: 07/10/21 13:11 Source: patient Mode of arrival: Ambulatory Limitations: No Limitations - History of Present Illness Initial Comments: R-sided CP x 1 week; no relief with at-home meds Complaint: chest pain -: Gradual, days(s) Onset: during rest Pain Location: right chest Pain Radiation: none Severity scale (0 -10): 8 Quality: sharp Consistency: intermittent Improves With: nothing Worsens With: nothing Context: recent illness - Related Data Home Medications Medication Instructions Recorded Confirmed Last Taken Spironolactone [Aldactone] 50 mg PO QDAY 12/28/12 03/27/16 03/27/16 amLODIPine 10 mg PO DAILY 12/28/12 03/27/16 12/27/12 19:00 Chromium 200 mg PO DAILY 03/27/16 03/27/16 03/20/16 Losartan 50 mg PO DAILY 03/27/16 03/27/16 03/27/16 Vitamin D 1 tab PO DAILY 03/27/16 03/27/16 03/20/16 Previous Rx's Medication Instructions Recorded Last Taken Type Hydrocodone Bit/Acetaminophen 1 each PO Q4-6H PRN #12 tablet 12/28/12 Unknown Rx [Lortab 5-500 Tablet] Cyclobenzaprine [Flexeril] 10 mg PO TID PRN #30 tablet 01/25/18 Unknown Rx Cyclobenzaprine [Flexeril] 10 mg PO TID PRN #30 tablet 11/28/[address] (Nf) 50 mg PO TID PRN #30 tab 11/28/18 Unknown Rx Menthol/Camphor [[place] 1 applicatio TP QID PRN #1 tube 11/28/18 Unknown Rx Ointment] Allergies Allergy/AdvReac Type Severity Reaction Status Date / Time Penicillins Allergy Rash Verified 10/27/16 13:20 Heart Score - HEART Score History: Slightly suspicious EKG: Normal Age: 45-65 Risk factors: 1-2 risk factors Troponin: < normal limit HEART Score: 2 - EKG Read Time Time EKG Completed: 18:34 EKG Read Time: 18:34 - Critical Actions Critical Actions: 0-3 pts:0.9-1.7%risk of adverse cardiac event.Candidate for discharge ED Review of Systems ROS: Stated complaint: RT SIDE CHEST PAIN Other details as noted in HPI ED Past Medical Hx - Past Medical History Hx Hypertension: Yes Hx Heart Attack/AMI: No Hx Liver Disease: No Hx Renal Disease: No Hx Sickle Cell Disease: No Hx Seizures: No Hx Asthma: No - Surgical History Additional Surgical History: x 2 - Social History Smoking Status: Never Smoker - Medications Home Medications: Home Medications Medication Instructions Recorded Confirmed Last Taken Type Hydrocodone Bit/Acetaminophen 1 each PO Q4-6H PRN #12 tablet 12/28/12 03/27/16 Unknown Rx [Lortab 5-500 Tablet] Spironolactone [Aldactone] 50 mg PO QDAY 12/28/12 03/27/16 03/27/16 History amLODIPine 10 mg PO DAILY 12/28/12 03/27/16 12/27/12 19:00 History Chromium 200 mg PO DAILY 03/27/16 03/27/16 03/20/16 History Losartan 50 mg PO DAILY 03/27/16 03/27/16 03/27/16 History Vitamin D 1 tab PO DAILY 03/27/16 03/27/16 03/20/16 History Cyclobenzaprine [Flexeril] 10 mg PO TID PRN #30 tablet 01/25/18 Unknown Rx Cyclobenzaprine [Flexeril] 10 mg PO TID PRN #30 tablet 11/28/[address] (Nf) 50 mg PO TID PRN #30 tab 11/28/18 Unknown Rx Menthol/Camphor [[place] 1 applicatio TP QID PRN #1 tube 11/28/18 Unknown Rx Ointment] ED Physical Exam - General Limitations: No Limitations General appearance: alert, in no apparent distress - Head Head exam: Present: atraumatic, normocephalic - Eye Eye exam: Present: normal appearance - ENT ENT exam: Present: mucous membranes moist - Neck Neck exam: Present: normal inspection - Respiratory Respiratory exam: Present: normal lung sounds bilaterally. Absent: respiratory distress - Cardiovascular Cardiovascular Exam: Present: regular rate, normal rhythm. Absent: systolic murmur, diastolic murmur, rubs, gallop - GI/Abdominal GI/Abdominal exam: Present: soft, normal bowel sounds - Extremities Exam Extremities exam: Present: normal inspection - Back Exam Back exam: Present: normal inspection - Neurological Exam Neurological exam: Present: alert, oriented X3 - Psychiatric Psychiatric exam: Present: normal affect, normal mood - Skin Skin exam: Present: warm, dry, intact, normal color. Absent: rash ED Course Vital Signs 07/10/21 07/10/21 13:18 17:20 Temperature 97.9 F Pulse Rate 63 Respiratory 20 Rate Blood Pressure 150/68 [Right] O2 Sat by Pulse 97 97 Oximetry BRITNI score - Britni Score Age > 65: (0) No Aspirin use within the Past 7 Days: (0) No 3 or more CAD Risk Factors: (0) No 2 or more Angina events in past 24 hrs: (0) No Known CAD with more than 50% Stenosis: (0) No Elevated Cardiac Markers: (0) No ST Deviation Greater than 0.5mm: (0) No BRITNI Score: 0 ED Medical Decision Making - Lab Data Result diagrams: 07/10/21 13:28 07/10/21 13:28 - EKG Data -: EKG Interpreted by Me Critical care attestation.: If time is entered above; I have spent that time in minutes in the direct care of this critically ill patient, excluding procedure time. ED Disposition Clinical Impression: Chest pain, Fatty liver Disposition: HOME / SELF CARE / HOMELESS Is pt being admited?: No Does the pt Need Aspirin: No Condition: Stable Instructions: Nonspecific Chest Pain, Adult, Nonspecific Chest Pain, Adult, [id number], Fatty Liver Disease Referrals: TRESSA TOM MD [Staff Physician] - 3-5 Days
[2021-07-10 18:57] VITALS: BP 131/78
--- NOTE | 2021-07-11 13:45 | Electrocardiograph Report ---
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
== END 2021-07-10 18:00 | disposition home or self-care (01) ==
LOC: ED 12:27
DX: K76.0 Fatty (change of) liver, not elsewhere classified (principal); R07.89 Other chest pain; I10 Essential (primary) hypertension; Z98.890 Other specified postprocedural states; Z88.0 Allergy status to penicillin
CPT/HCPCS: 36415; 71046; 71275; 80053; 84484; 85025; 85379; 85610; 85730; 93005; 96374; 96375; 99284; J2270; J2405; Q9967

== ENCOUNTER 2021-07-21 08:32 | Outpatient (CLI) | payer BC ==
--- NOTE | 2021-07-22 10:18 | Nuclear Medicine Report ---
APPROVED REPORT Exam: Nuclear Stress Test Indication: Chest pain [facility]: [facility] Ht: 5 ft 3 in Wt: 250 lbs BSA: 2.13 m2 HR: 52 bpmBP: 110/53 mmHgBMI: 44.28 Rhythm: SINUS BRADYCARDIA Stress Test Details HR Resting HR: 52 bpm Max HR Achieved: 135 bpm Max Heart Rate (APMHR): 162.781381 bpm Target HR (85% APMHR): 137.832913 bpm % of APMHR: 83.33 Recovery HR: 76 bpm BP Resting BP: 110/53 mmHg Max BP: 180/70 mmHg Recovery BP: 117/59 mmHg ECG Resting ECG: Sinus Bradycardia Stress ECG: Sinus Rhythm Recovery ECG: Sinus Rhythm Clinical Reason for Termination: Fatigue Stress Symptoms: None Exercise duration: 7 min 3 sec Highest Stage Achieved: Exercise capacity: 8.8 METs NM EXAM: Myocardial Perfusion REST/STRESS Imaging Protocol: Rest Tc-99m/Stress Tc-99m 1 day Resting Data Rest SPECT myocardial perfusion imaging was performed in supine position 45 minutes following the intravenous injection of 10 mCi of Tc-99m Myoview. Time of rest injection: 0915 Exercise Stress At peak stress, the patient was injected intravenously with 28mCi of Tc-99m Myoview. Time of stress injection: 1100 Gated Stress SPECT was performed 15 minutes after stress injection. The images were gated to evaluate regional wall motion and calculate left ventricular ejection fraction. Study Quality Study: excellent Lung Uptake: Normal Study Data TID = 0.92. Perfusion Wall Motion The rest and stress images show normal left ventricular wall motion. Nuclear Conclusion ECG Findings: negative for ischemia Clinical Findings: negative for ischemia Nuclear Findings: negative for ischemia Exercise Capacity: normal Left Ventricular Function: normal Negative treadmill EKG. Patient exercised for 7 minutes 30 seconds of [place] protocol. No exaggerated blood pressure response to exercise. Normal myocardial perfusion no significant ischemia with normal LV function.
== END 2021-07-21 08:33 | disposition home or self-care (01) ==
LOC: CARD 08:32
PROVIDERS: ATTEND Internal Medicine
DX: R07.89 Other chest pain (principal)
CPT/HCPCS: 78452; 93017; A9502